=== PATIENT | female | born 1975 | race American Indian/Alaskan Native ===

== ENCOUNTER 2021-04-16 08:39 | Observation (INO) | payer OTHER ==
[2021-04-16] MEDS ORDERED: ASPIRIN 325 MG TAB PO ONE (09:05)
--- NOTE | 2021-04-16 09:56 | XRay Report ---
CHEST 2 VIEWS INDICATION / CLINICAL INFORMATION: chest pain. COMPARISON: None available. FINDINGS: SUPPORT DEVICES: None. HEART / MEDIASTINUM: No significant abnormality. LUNGS / PLEURA: No significant pulmonary abnormality. No significant pleural effusion. No pneumothora x. ADDITIONAL FINDINGS: No significant additional findings. IMPRESSION: 1. No acute abnormality of the chest. Signer Name: Yvon Melara MD Signed: 04/16/2021 9:52 AM Workstation Name: [id number]
[2021-04-16 10:30] LABS: Hematocrit 41.9 % (30.3-42.9); Hemoglobin 14.6 gm/dl (10.1-14.3); Mean Corpuscular HGB Conc 35 % (30-34); Mean Corpuscular Volume 91 fl (79-97); Platelet Count 269 K/mm3 (140-440); Red Blood Count 4.59 M/mm3 (3.65-5.03); Red Cell Distribution Width 16.3 % (13.2-15.2)
--- NOTE | 2021-04-16 10:39 | Emergency Department Report ---
ED Chest Pain HPI - General Chief Complaint: Chest Pain Stated Complaint: HEART DISCOMFORT Time Seen by Provider: 04/16/21 10:19 Source: patient Mode of arrival: Ambulatory Limitations: No Limitations - History of Present Illness Initial Comments: 45-year-old female with history of iron deficiency anemia and sickle cell trait, as well as some unknown heart condition which was apparently diagnosed at [place] last year, presents complaining of 3 days of intermittent left-sided chest pain. The patient states that for the last 3 days she has been experiencing intermittent episodes of left-sided chest pain just under her left breast and radiating to her left shoulder and left flank. She states that for the past 3 days the episodes have lasted a couple minutes at a time and come on at random. They resolve spontaneously after a few minutes. However, this morning around 6:30 AM, the patient reports that she had an episode of the left-sided chest p ain which lasted for 15 to 20 minutes, and then afterwards she was experiencing some very sharp pain for only few seconds at a time. However, this scared her and caused her to come in today. She states that the pain feels pressure-like. It is radiating to the left shoulder and flank. The pain is worsened by taking deep breaths. She denies any associated sweating, nausea/vomiting, shortness of breath, abdominal pain, cough, palpitations, headache, vision change, back pain, dysuria, hematuria, focal weakness, sensory changes, or any other complaints. She is vaccinated against the coronavirus. She denies any recent trauma. She has not tried taking anything for her symptoms. She has had a hysterectomy in the past. - Related Data Allergies Allergy/AdvReac Type Severity Reaction Status Date / Time acetaminophen Allergy Severe Swelling Verified 04/16/21 09:05 [From Tylenol-Codeine #3] codeine Allergy Severe Swelling Verified 04/16/21 09:05 [From Tylenol-Codeine #3] shellfish derived Allergy Severe Anaphylaxis Verified 04/16/21 09:05 Heart Score - HEART Score History: Highly suspicious EKG: Non-specific Age: < 45 Risk factors: 1-2 risk factors Troponin: < normal limit HEART Score: 4 - EKG Read Time Time EKG Completed: 08:54 EKG Read Time: 08:54 ED Review of Systems ROS: Stated complaint: HEART DISCOMFORT Other details as noted in HPI Constitutional: denies: chills, fever Eyes: denies: eye pain, vision change ENT: denies: throat pain, congestion Respiratory: denies: cough, shortness of breath Cardiovascular: chest pain, other (pleurisy). denies: palpitations, edema, syncope Gastrointestinal: denies: abdominal pain, nausea, vomiting Genitourinary: denies: dysuria, frequency Musculoskeletal: denies: back pain Skin: denies: rash Neurological: denies: headache, weakness, numbness ED Past Medical Hx - Past Medical History Previous Medical History?: Yes Hx Hypertension: Yes Additional medical history: sickle cell trait, unknown heart condition - Surgical History Past Surgical History?: Yes Additional Surgical History: hysterectomy - Social History Smoking Status: Unknown if ever smoked ED Physical Exam - General Limitations: No Limitations - Other Other exam information: GENERAL: Well developed and well nourished. No acute distress HEENT: Normocephalic. No obvious signs of trauma. Dry mucous membranes. EYES: Extraocular movements are intact. Pupils are equal round and reactive to light bilaterally NECK: Supple. Trachea is midline. LUNGS: Nonlabored breathing. Equal chest rise bilaterally. Clear to auscultation bilaterally. HEART/CARDIOVASCULAR: Regular rate and rhythm. No murmurs or rubs. VASCULAR: 2+ peripheral pulses. Cap refill < 2 seconds. No significant edema. ABDOMEN: Abdomen is soft and nondistended. There is no significant tenderness, guarding or rebound. SKIN: Skin is warm and dry NEURO: Patient is awake, alert, and oriented. flyer maker II-XII grossly intact. No focal deficits. Normal motor and sensory exam throughout. Normal speech. MUSCULOSKELETAL: No obvious deformities. There is mild tenderness over the left shoulder joint. However, there is no overlying skin changes, swelling, redness of any kind. She has full range of motion at the left shoulder including abduction/abduction and extension flexion. She has normal range of motion throughout. BACK/SPINE: Left CVA tenderness. ED Course Vital Signs 04/16/21 04/16/21 04/16/21 10:50 11:22 11:25 Temperature Pulse Rate 73 Respiratory 18 13 Rate Blood Pressure 139/96 Blood Pressure [Left] O2 Sat by Pulse 100 100 Oximetry 04/16/21 04/16/21 04/16/21 11:30 13:06 13:10 Temperature 98.7 F Pulse Rate 79 70 Respiratory 11 L 12 Rate Blood Pressure 147/117 147/117 Blood Pressure [Left] O2 Sat by Pulse 99 100 Oximetry 04/16/21 04/16/21 04/16/21 13:16 13:20 13:25 Temperature Pulse Rate 74 79 76 Respiratory 15 18 20 Rate Blood Pressure 147/117 147/117 134/96 Blood Pressure [Left] O2 Sat by Pulse 100 99 Oximetry 04/16/21 04/16/21 04/16/21 13:30 13:36 13:40 Temperature Pulse Rate 98 H 76 77 Respiratory 10 L 15 22 Rate Blood Pressure 134/96 134/96 134/96 Blood Pressure [Left] O2 Sat by Pulse 100 99 100 Oximetry 04/16/21 04/16/21 04/16/21 13:46 13:50 13:55 Temperature Pulse Rate 90 83 75 Respiratory 17 10 L 14 Rate Blood Pressure 142/88 142/88 116/72 Blood Pressure [Left] O2 Sat by Pulse 99 87 87 Oximetry 04/16/21 04/16/21 04/16/21 14:00 14:06 14:10 Temperature Pulse Rate 82 87 81 Respiratory 16 12 15 Rate Blood Pressure 116/72 116/72 116/72 Blood Pressure [Left] O2 Sat by Pulse 83 L 97 Oximetry 04/16/21 04/16/21 04/16/21 14:16 14:20 14:25 Temperature Pulse Rate 81 80 78 Respiratory 16 12 13 Rate Blood Pressure 116/72 116/72 118/90 Blood Pressure [Left] O2 Sat by Pulse 100 100 99 Oximetry 04/16/21 04/16/21 04/16/21 14:30 14:36 14:40 Temperature Pulse Rate 79 84 82 Respiratory 13 15 13 Rate Blood Pressure 118/90 118/90 118/90 Blood Pressure [Left] O2 Sat by Pulse 96 Oximetry 04/16/21 04/16/21 04/16/21 14:46 14:50 14:55 Temperature Pulse Rate 80 80 77 Respiratory 15 13 10 L Rate Blood Pressure 118/90 118/90 128/94 Blood Pressure [Left] O2 Sat by Pulse Oximetry 04/16/21 04/16/21 04/16/21 15:00 15:06 15:10 Temperature Pulse Rate 77 72 75 Respiratory 14 13 18 Rate Blood Pressure 128/94 128/94 128/94 Blood Pressure [Left] O2 Sat by Pulse 100 Oximetry 04/16/21 04/16/21 04/16/21 15:16 15:20 15:25 Temperature Pulse Rate 68 67 63 Respiratory 19 18 17 Rate Blood Pressure 128/94 128/94 134/78 Blood Pressure [Left] O2 Sat by Pulse 99 100 99 Oximetry 04/16/21 04/16/21 04/16/21 15:30 15:36 15:40 Temperature Pulse Rate 68 64 65 Respiratory 19 18 19 Rate Blood Pressure 134/78 134/78 134/78 Blood Pressure [Left] O2 Sat by Pulse 99 100 99 Oximetry 04/16/21 04/16/21 04/16/21 15:46 15:50 15:55 Temperature Pulse Rate 65 64 73 Respiratory 17 17 12 Rate Blood Pressure 134/78 134/78 124/80 Blood Pressure [Left] O2 Sat by Pulse 100 100 100 Oximetry 04/16/21 04/16/21 04/16/21 16:00 16:06 16:10 Temperature Pulse Rate 75 68 71 Respiratory 16 15 21 Rate Blood Pressure 124/80 124/80 124/80 Blood Pressure [Left] O2 Sat by Pulse Oximetry 04/16/21 04/16/21 04/16/21 16:16 16:20 16:25 Temperature Pulse Rate 66 66 68 Respiratory 15 18 16 Rate Blood Pressure 124/80 124/80 127/86 Blood Pressure [Left] O2 Sat by Pulse Oximetry 04/16/21 04/16/21 04/16/21 16:30 16:36 16:40 Temperature Pulse Rate 68 67 80 Respiratory 17 21 18 Rate Blood Pressure 127/86 127/86 127/86 Blood Pressure [Left] O2 Sat by Pulse 100 Oximetry 04/16/21 04/16/21 04/16/21 16:46 16:50 16:55 Temperature Pulse Rate 75 78 80 Respiratory 17 14 19 Rate Blood Pressure 127/86 127/86 125/84 Blood Pressure [Left] O2 Sat by Pulse 99 100 99 Oximetry 04/16/21 04/16/21 04/16/21 17:00 17:06 17:10 Temperature Pulse Rate 76 73 79 Respiratory 11 L 14 14 Rate Blood Pressure 127/86 127/86 127/86 Blood Pressure [Left] O2 Sat by Pulse 84 Oximetry 04/16/21 04/16/21 04/16/21 17:16 17:20 17:25 Temperature Pulse Rate 85 95 H 88 Respiratory 15 15 17 Rate Blood Pressure 127/86 127/86 136/94 Blood Pressure [Left] O2 Sat by Pulse Oximetry 04/16/21 04/16/21 04/16/21 17:30 17:36 17:40 Temperature Pulse Rate 82 85 88 Respiratory 22 11 L 14 Rate Blood Pressure 136/94 136/94 136/94 Blood Pressure [Left] O2 Sat by Pulse Oximetry 04/16/21 04/16/21 04/16/21 17:46 17:50 17:55 Temperature Pulse Rate 81 87 80 Respiratory 12 22 13 Rate Blood Pressure 136/94 136/94 128/85 Blood Pressure [Left] O2 Sat by Pulse Oximetry 04/16/21 04/16/21 04/16/21 18:00 18:06 18:10 Temperature Pulse Rate 87 82 82 Respiratory 18 18 14 Rate Blood Pressure 128/85 128/85 128/85 Blood Pressure [Left] O2 Sat by Pulse 98 100 98 Oximetry 04/16/21 04/16/21 04/16/21 18:16 18:20 18:25 Temperature Pulse Rate 85 79 88 Respiratory 11 L 23 22 Rate Blood Pressure 128/85 128/85 123/86 Blood Pressure [Left] O2 Sat by Pulse Oximetry 04/16/21 04/16/21 04/16/21 18:30 18:35 18:40 Temperature Pulse Rate 86 82 81 Respiratory 25 H 20 17 Rate Blood Pressure 123/86 123/86 123/86 Blood Pressure [Left] O2 Sat by Pulse 87 Oximetry 04/16/21 04/16/21 04/16/21 18:46 18:50 18:55 Temperature Pulse Rate 99 H 100 H 90 Respiratory 14 23 22 Rate Blood Pressure 123/86 123/86 130/86 Blood Pressure [Left] O2 Sat by Pulse 86 87 85 Oximetry 04/16/21 04/16/21 04/16/21 19:00 19:06 19:10 Temperature Pulse Rate 99 H 108 H 94 H Respiratory 15 18 26 H Rate Blood Pressure 123/86 123/86 123/86 Blood Pressure [Left] O2 Sat by Pulse 100 99 Oximetry 04/16/21 04/16/21 04/16/21 19:16 19:20 19:25 Temperature Pulse Rate 93 H 89 90 Respiratory 22 21 21 Rate Blood Pressure 123/86 123/86 139/88 Blood Pressure [Left] O2 Sat by Pulse 99 98 100 Oximetry 04/16/21 04/16/21 04/16/21 19:30 19:36 19:40 Temperature Pulse Rate 100 H 94 H 92 H Respiratory 21 21 20 Rate Blood Pressure 139/88 139/88 139/88 Blood Pressure [Left] O2 Sat by Pulse 97 97 97 Oximetry 04/16/21 04/16/21 04/16/21 19:46 19:50 19:55 Temperature Pulse Rate 94 H 94 H 95 H Respiratory 25 H 20 22 Rate Blood Pressure 139/88 139/88 116/77 Blood Pressure [Left] O2 Sat by Pulse 98 98 98 Oximetry 04/16/21 04/16/21 04/16/21 20:00 20:06 20:10 Temperature 98.4 F Pulse Rate 87 96 H 100 H Respiratory 18 25 H 23 Rate Blood Pressure 139/88 139/88 139/88 Blood Pressure 119/81 [Left] O2 Sat by Pulse 99 100 99 Oximetry 04/16/21 04/16/21 04/16/21 20:16 20:20 20:26 Temperature Pulse Rate 98 H 98 H 92 H Respiratory 25 H 15 10 L Rate Blood Pressure 139/88 139/88 99/57 Blood Pressure [Left] O2 Sat by Pulse 100 100 Oximetry SERGIO score - Sergio Score Age > 65: (0) No Aspirin use within the Past 7 Days: (0) No 3 or more CAD Risk Factors: (0) No 2 or more Angina events in past 24 hrs: (1) Yes Known CAD with more than 50% Stenosis: (0) No Elevated Cardiac Markers: (0) No ST Deviation Greater than 0.5mm: (0) No SERGIO Score: 1 ED Medical Decision Making - Lab Data Result diagrams: 04/16/21 09:53 04/16/21 09:53 Lab Results 04/16/21 04/16/21 04/16/21 Range/Units 09:53 09:53 10:26 WBC 5.4 (4.5-11.0) K/mm3 RBC 4.59 (3.65-5.03) M/mm3 Hgb 14.6 H (10.1-14.3) gm/dl Hct 41.9 (30.3-42.9) % MCV 91 (79-97) fl MCH 32 (28-32) pg MCHC 35 H (30-34) % RDW 16.3 H (13.2-15.2) % Plt Count 269 (140-440) K/mm3 Add Manual Diff Complete Total Counted 100 Seg Neuts % (Manual) 69.0 (40.0-70.0) % Lymphocytes % (Manual) 24.0 (13.4-35.0) % Monocytes % (Manual) 7.0 (0.0-7.3) % Nucleated RBC % Not Reportable Seg Neutrophils # Man 3.7 (1.8-7.7) K/mm3 Band Neutrophils # 0.0 K/mm3 Lymphocytes # (Manual) 1.3 (1.2-5.4) K/mm3 Abs React Lymphs (Man) 0.0 K/mm3 Monocytes # (Manual) 0.4 (0.0-0.8) K/mm3 Eosinophils # (Manual) 0.0 (0.0-0.4) K/mm3 Basophils # (Manual) 0.0 (0.0-0.1) K/mm3 Metamyelocytes # 0.0 K/mm3 Myelocytes # 0.0 K/mm3 Promyelocytes # 0.0 K/mm3 Blast Cells # 0.0 K/mm3 WBC Morphology Not Reportable Hypersegmented Neuts Not Reportable Hyposegmented Neuts Not Reportable Hypogranular Neuts Not Reportable Smudge Cells Not Reportable Toxic Granulation Not Reportable Toxic Vacuolation Not Reportable Dohle Bodies Not Reportable Pelger-Huet Anomaly Not Reportable Ger Rods Not Reportable Platelet Estimate Consistent w auto Clumped Platelets Not Reportable Plt Clumps, EDTA Not Reportable Large Platelets Not Reportable Giant Platelets Not Reportable Platelet Satelliting Not Reportable Plt Morphology Comment Not Reportable RBC Morphology Normal Dimorphic RBCs Not Reportable Polychromasia Not Reportable Hypochromasia Not Reportable Poikilocytosis Not Reportable Anisocytosis Not Reportable Microcytosis Not Reportable Macrocytosis Not Reportable Spherocytes Not Reportable Pappenheimer Bodies Not Reportable Sickle Cells Not Reportable Target Cells Not Reportable Tear Drop Cells Not Reportable Ovalocytes Not Reportable Helmet Cells Not Reportable Glass-Winterset Bodies Not Reportable [place] Rings Not Reportable Kittrell Cells Not Reportable Bite Cells Not Reportable Crenated Cell Not Reportable Elliptocytes Not Reportable Acanthocytes (Spur) Not Reportable Rouleaux Not Reportable Hemoglobin C Crystals Not Reportable Schistocytes Not Reportable Malaria parasites Not Reportable Dinesh Bodies Not Reportable Hem Pathologist Commnt No Sodium 140 (137-145) mmol/L Potassium 4.0 (3.6-5.0) mmol/L Chloride 104.2 (98-107) mmol/L Carbon Dioxide 29 (22-30) mmol/L Anion Gap 11 mmol/L BUN 7 (7-17) mg/dL Creatinine 0.6 (0.6-1.2) mg/dL Estimated GFR > 60 ml/min BUN/Creatinine Ratio 12 % Glucose 72 (65-100) mg/dL Calcium 9.3 (8.4-10.2) mg/dL Total Bilirubin 0.70 (0.1-1.2) mg/dL AST 18 (5-40) units/L ALT 9 (7-56) units/L Alkaline Phosphatase 42 (35-129) units/L Troponin T < 0.010 (0.00-0.029) ng/mL Total Protein 7.7 (6.3-8.2) g/dL Albumin 4.3 (3.9-5) g/dL Albumin/Globulin Ratio 1.3 % Lipase 28 (13-60) units/L - EKG Data -: EKG Interpreted by Az - EKG Data 04/16/21 10:58 Normal sinus rhythm. Normal axis. Normal intervals. No ectopy. Findings most consistent with early repolarization. There are no significant anatomically distributed ST elevations or T wave abnormalities. - Radiology Data Left shoulder 3 views INDICATION: Shoulder pain FINDINGS: Glenohumeral joint and AC joint appears normal. No acute fracture dislocation. IMPRESSION: No acute findings. Signer Name: Max Esteves MD Signed: 04/16/2021 10:24 AM Workstation Name: [id number] CHEST 2 VIEWS INDICATION / CLINICAL INFORMATION: chest pain. COMPARISON: None available. FINDINGS: SUPPORT DEVICES: None. HEART / MEDIASTINUM: No significant abnormality. LUNGS / PLEURA: No significant pulmonary abnormality. No significant pleural effusion. No pneumothorax. ADDITIONAL FINDINGS: No significant additional findings. IMPRESSION: 1. No acute abnormality of the chest. Signer Name: Yvon Melara MD Signed: 04/16/2021 8:52 AM Workstation Name: [id number] CT angio chest INDICATION / CLINICAL INFORMATION: rule out PE 100 ml omni 350 . TECHNIQUE: Axial CT images were obtained through the chest after injection of IV contrast. 3 plane MIP and/or 3D reconstructions were produced. All CT scans at this location are performed using CT dose reduction for ALARA by means of automated exposure control. COMPARISON: None available. FINDINGS: PULMONARY ARTERIES: No pulmonary emboli. HEART: No significant abnormality. MEDIASTINUM / STACIE: No significant abnormality. LUNGS: Lungs are clear No pleural effusion. No pneumothorax. ADDITIONAL FINDINGS: None. UPPER ABDOMEN: No acute findings. SKELETAL STRUCTURES: No significant osseous abnormality. IMPRESSION: 1. No CT evidence for pulmonary embolism. 2. No acute findings. Signer Name: Loki Conley MD Signed: 04/16/2021 11:16 AM Workstation Name: [id number] CT abdomen pelvis w con INDICATION: Left CVA tenderness 100 omni 350 . COMPARISON: None TECHNIQUE: Abdominal and pelvic CT exam performed. All CT scans at this location are performed using CT dose reduction for ALARA by means of automated exposure control. FINDINGS: CT ABDOMEN and PELVIS: Lung Bases: No significant abnormality. Liver: No significant abnormality. Biliary: No significant abnormality. Spleen: No significant abnormality. Pancreas: No significant abnormality. Adrenals: No significant abnormality. Kidneys: There are 2 punctate nonobstructing right middle lower pole stones. There is a complex cystic lesion within the left upper pole containing septations and thickened calcifications measuring up to approximately 3.3 cm. No definite enhancing mural nodularity. There are a few other bilateral simple appearing renal cysts. Lymphatics: No lymphadenopathy. Vasculature: No significant abnormality. Bowel: No significant abnormality. Normal appendix. Pelvis: No significant abnormality. Osseous Structures: No aggressive osseous lesion. Additional Findings: None IMPRESSION: 1. No acute findings. 2. There is a complex left upper pole cyst with multiple septa and thickened calcifications measuring 3.3cm which is thought to be Bosniak IIF. Recommend further characterization with multiphase CT or MRI on a nonemergent basis Signer Name: Loki Conley MD Signed: 04/16/2021 11:17 AM Workstation Name: [id number] - Medical Decision Making 45-year-old female who reports that she has a history of some heart condition which caused reduced blood flow to her heart last year which was diagnosed at [facility] presents complaining of 3 days of intermittent left-sided chest pain just under her left breast. The pain radiates to her left shoulder and around her left flank. It is also pleuritic. Her last episode of pain was at 6 AM this morning and lasted 15 to 20 minutes. However, she says she does have mild soreness of her chest now without discrete pain. On physical exam, she has dry mucous membranes. She has no abdominal tenderness, however there is left- sided CVA tenderness. In addition, her left shoulder joint is tender to the touch but she has full range of motion throughout. Given the numerous symptoms and wide differential which definitely includes ACS, we will perform broad work- up with a full set of labs including urinalysis, left shoulder x-ray, and CTA of the chest/abdomen/pelvis to assess for pulmonary embolism or other intra- thoracic/abdominal abnormality. CXR is wnl. We will give 1 L of IV fluids and aspirin for now. Labs have resulted and reveal no significant leukocytosis or anemia. There are no significant electrolyte abnormalities and kidney function is normal. Initial troponin is negative. CTA of the chest/abdomen/pelvis reveals no evidence of pulmonary embolism or intrathoracic/abdominal abnormality. There is an incidental finding of a renal cyst. All this was conveyed to the patient because she needs to follow this finding up. I gave her a printed copy of her CT report. The patient expressed understanding and agreement. The patient's heart score is 4. Given her history of some unknown cardiac abnormality and her heart score, she will be admitted to the on-call hospitalist for further work- up and management. The patient will be given nitroglycerin and aspirin. At 12:34 PM I spoke with Dr. Chiu, the on-call hospitalist regarding the case. He accepts the patient for admission and will assume care. On repeat assessment at 2 PM, the patient reports that she feels much better after the nitro glycerin and that it relieved her pain. Critical care attestation.: If time is entered above; I have spent that time in minutes in the direct care of this critically ill patient, excluding procedure time. ED Disposition Clinical Impression: Angina at rest, Dehydration Disposition: OP ADMIT IP TO THIS HOSP Is pt being admited?: Yes Condition: Stable
[2021-04-16] MEDS ORDERED: SODIUM CHLORIDE 0.9% 1000 ML 1,000 ML IV ONE (10:40)
[2021-04-16 10:55] LABS: Alanine Aminotransferase 9 units/L (7-56); Albumin 4.3 g/dL (3.9-5); Blood Urea Nitrogen 7 mg/dL (7-17); Calcium 9.3 mg/dL (8.4-10.2); Hemolysis Index 12
[2021-04-16 10:56] LABS: BUN/Creatinine Ratio 12
--- NOTE | 2021-04-16 11:29 | XRay Report ---
Left shoulder 3 views INDICATION: Shoulder pain FINDINGS: Glenohumeral joint and AC joint appears normal. No acute fracture dislocation. IMPRESSION: No acute findings. Signer Name: Max Esteves MD Signed: 04/16/2021 11:24 AM Workstation Name: [id number]
[2021-04-16] MEDS ORDERED: NITROGLYCERIN 0.4 MG TAB SUBL SL PRN (12:01)
--- NOTE | 2021-04-16 12:20 | Cat Scan Report ---
CT angio chest INDICATION / CLINICAL INFORMATION: rule out PE 100 ml omni 350 . TECHNIQUE: Axial CT images were obtained through the chest after injection of IV contrast. 3 plane MIP and/or 3D reconstructions were produced. All CT scans at this location are performed using CT dose reduction f or ALARA by means of automated exposure control. COMPARISON: None available. FINDINGS: PULMONARY ARTERIES: No pulmonary emboli. HEART: No significant abnormality. MEDIASTINUM / STACIE: No significant abnormality. LUNGS: Lungs are clear No pleural effusion. No pneumothorax. ADDITIONAL FINDINGS: None. UPPER ABDOMEN: No acute findings. SKELETAL STRUCTURES: No significant osseous abnormality. IMPRESSION: 1. No CT evidence for pulmonary embolism. 2. No acute findings. Signer Name: Loki Conley MD Signed: 04/16/2021 12:16 PM Workstation Name: [id number]
--- NOTE | 2021-04-16 12:21 | Cat Scan Report ---
CT abdomen pelvis w con INDICATION: Left CVA tenderness 100 omni 350 . COMPARISON: None TECHNIQUE: Abdominal and pelvic CT exam performed. All CT scans at this location are performed using CT dose reduction for ALARA by means of automated exposure control. FINDINGS: CT ABDOMEN and PELVIS: Lung Bases: No significant abnormality. Liver: No significant abnormality. Biliary: No significant abnormality. Spleen: No significant abnormality. Pancreas: No significant abnormality. Adrenals: No significant abnormality. Kidneys: There are 2 punctate nonobstructing right middle lower pole stones. There is a complex cysti c lesion within the left upper pole containing septations and thickened calcifications measuring up t o approximately 3.3 cm. No definite enhancing mural nodularity. There are a few other bilateral simpl e appearing renal cysts. Lymphatics: No lymphadenopathy. Vasculature: No significant abnormality. Bowel: No significant abnormality. Normal appendix. Pelvis: No significant abnormality. Osseous Structures: No aggressive osseous lesion. Additional Findings: None IMPRESSION: 1. No acute findings. 2. There is a complex left upper pole cyst with multiple septa and thickened calcifications measuring 3.3cm which is thought to be Bosniak IIF. Recommend further characterization with multiphase CT or M RI on a nonemergent basis Signer Name: Loki Conley MD Signed: 04/16/2021 12:17 PM Workstation Name: [id number]
[2021-04-16 12:36] LABS: Total Cells Counted 100
[2021-04-16 12:41] LABS: Platelet Estimate Consistent w Auto; RBC Morphology Normal
[2021-04-16 13:12] LABS: Bilirubin,Urine NEG (Negative); Blood,Urine NEG (Negative); Color,Urine Straw (Yellow); Protein,Urine <15 mg/dL mg/dL (Negative); Urobilinogen,Urine < 2.0 mg/dL (<2.0); WBC,Urine < 1.0 /HPF (0.0-6.0)
[2021-04-16] MEDS ORDERED: ONDANSETRON 4 MG/2 ML INJ IV PRN (23:01)
[2021-04-16] MEDS ORDERED: MORPHINE 2 MG/1 ML INJ IV PRN (23:01)
[2021-04-16] MEDS ORDERED: ACETAMINOPHEN 325 MG TAB PO PRN (23:01)
[2021-04-16] MEDS ORDERED: HYDROmorphone 1 MG/1 ML INJ IV PRN (23:01)
--- NOTE | 2021-04-16 23:08 | History and Physical Report ---
History of Present Illness Date of examination: 04/16/21 Date of admission: 04/16/21 12:35 Chief complaint: Chest pain for 3 days History of present illness: 47-year-old -[place] female with history of sickle cell trait comes in for left-sided chest pain of 3 days duration. Intermittent in nature. Chest pain is about 6 on a scale of 1-10. No exacerbating or relieving factors. No diaphoresis no shortness of breath no radiation of the chest pain. Patient has some unknown heart condition with of which is not clear. Patient also has sickle cell trait. No fever or chills. No exposure to coronavirus. Heart Score - HEART Score History: Highly suspicious EKG: Non-specific Age: < 45 Risk factors: 1-2 risk factors Troponin: < normal limit HEART Score: 4 - EKG Read Time Time EKG Completed: 08:54 EKG Read Time: 08:54 - Past Medical History Previous Medical History?: Yes --Hypertension: Yes Additional medical history: sickle cell trait, unknown heart condition - Surgical History Past Surgical History?: Yes Additional Surgical History: hysterectomy - Social History Smoking Status: Unknown if ever smoked Review of Systems ROS: Stated complaint: HEART DISCOMFORT Other details as noted in HPI Constitutional: denies: chills, fever Eyes: denies: eye pain, vision change ENT: denies: throat pain, congestion Respiratory: denies: cough, shortness of breath Cardiovascular: chest pain, other (pleurisy). denies: palpitations, edema, sy ncope Gastrointestinal: denies: abdominal pain, nausea, vomiting Genitourinary: denies: dysuria, frequency Musculoskeletal: denies: back pain Skin: denies: rash Neurological: denies: headache, weakness, numbness Medications and Allergies Allergies Allergy/AdvReac Type Severity Reaction Status Date / Time acetaminophen Allergy Severe Swelling Verified 04/16/21 09:05 [From Tylenol-Codeine #3] codeine Allergy Severe Swelling Verified 04/16/21 09:05 [From Tylenol-Codeine #3] shellfish derived Allergy Severe Anaphylaxis Verified 04/16/21 09:05 Active Meds: Active Medications Nitroglycerin (Nitroglycerin 0.4 Mg Tab Subl) 0.4 mg SL .Q5MIN PRN PRN Reason: Chest Pain Last Admin: 04/16/21 13:30 Dose: 0.4 mg Documented by: Exam - Constitutional Vitals: Temp Pulse Resp BP Pulse Ox 98.4 F 89 10 L 99/57 100 04/16/21 20:00 04/16/21 22:08 04/16/21 20:26 04/16/21 20:26 04/16/21 20:20 General appearance: Present: no acute distress, well-nourished - EENT Eyes: Present: PERRL ENT: hearing intact, clear oral mucosa - Neck Neck: Present: supple, normal ROM - Respiratory Respiratory effort: normal Respiratory: bilateral: CTA - Cardiovascular Heart rate: 78 Rhythm: regular Heart Sounds: Present: S1 & S2. Absent: rub, click - Extremities Extremities: pulses symmetrical, No edema Peripheral Pulses: within normal limits - Abdominal General gastrointestinal: Present: soft, non-tender, non-distended, normal bowel sounds Female genitourinary: Present: normal - Integumentary Integumentary: Present: clear, warm, dry - Musculoskeletal Musculoskeletal: gait normal, strength equal bilaterally - Psychiatric Psychiatric: appropriate mood/affect, intact judgment & insight - Neurologic Neurologic: CNII-XII intact, moves all extremities HEART Score - HEART Score EKG: Non-specific Age: < 45 Risk factors: 1-2 risk factors Troponin: Troponin T < 0.010 ng/mL (0.00-0.029) 04/16/21 14:46 Troponin: < normal limit Results - Labs CBC & Chem 7: 04/17/21 06:10 04/16/21 09:53 Labs: Laboratory Last Values WBC 5.4 K/mm3 (4.5-11.0) 04/16/21 09:53 RBC 4.59 M/mm3 (3.65-5.03) 04/16/21 09:53 Hgb 14.6 gm/dl (10.1-14.3) H 04/16/21 09:53 Hct 41.9 % (30.3-42.9) 04/16/21 09:53 MCV 91 fl (79-97) 04/16/21 09:53 MCH 32 pg (28-32) 04/16/21 09:53 MCHC 35 % (30-34) H 04/16/21 09:53 RDW 16.3 % (13.2-15.2) H 04/16/21 09:53 Plt Count 269 K/mm3 (140-440) 04/16/21 09:53 Add Manual Diff Complete 04/16/21 09:53 Total Counted 100 04/16/21 09:53 Seg Neuts % (Manual) 69.0 % (40.0-70.0) 04/16/21 09:53 Lymphocytes % (Manual) 24.0 % (13.4-35.0) 04/16/21 09:53 Monocytes % (Manual) 7.0 % (0.0-7.3) 04/16/21 09:53 Nucleated RBC % Not Reportable 04/16/21 09:53 Seg Neutrophils # Man 3.7 K/mm3 (1.8-7.7) 04/16/21 09:53 Band Neutrophils # 0.0 K/mm3 04/16/21 09:53 Lymphocytes # (Manual) 1.3 K/mm3 (1.2-5.4) 04/16/21 09:53 Abs React Lymphs (Man) 0.0 K/mm3 04/16/21 09:53 Monocytes # (Manual) 0.4 K/mm3 (0.0-0.8) 04/16/21 09:53 Eosinophils # (Manual) 0.0 K/mm3 (0.0-0.4) 04/16/21 09:53 Basophils # (Manual) 0.0 K/mm3 (0.0-0.1) 04/16/21 09:53 Metamyelocytes # 0.0 K/mm3 04/16/21 09:53 Myelocytes # 0.0 K/mm3 04/16/21 09:53 Promyelocytes # 0.0 K/mm3 04/16/21 09:53 Blast Cells # 0.0 K/mm3 04/16/21 09:53 WBC Morphology Not Reportable 04/16/21 09:53 Hypersegmented Neuts Not Reportable 04/16/21 09:53 Hyposegmented Neuts Not Reportable 04/16/21 09:53 Hypogranular Neuts Not Reportable 04/16/21 09:53 Smudge Cells Not Reportable 04/16/21 09:53 Toxic Granulation Not Reportable 04/16/21 09:53 Toxic Vacuolation Not Reportable 04/16/21 09:53 Dohle Bodies Not Reportable 04/16/21 09:53 Pelger-Huet Anomaly Not Reportable 04/16/21 09:53 Ger Rods Not Reportable 04/16/21 09:53 Platelet Estimate Consistent w auto 04/16/21 09:53 Clumped Platelets Not Reportable 04/16/21 09:53 Plt Clumps, EDTA Not Reportable 04/16/21 09:53 Large Platelets Not Reportable 04/16/21 09:53 Giant Platelets Not Reportable 04/16/21 09:53 Platelet Satelliting Not Reportable 04/16/21 09:53 Plt Morphology Comment Not Reportable 04/16/21 09:53 RBC Morphology Normal 04/16/21 09:53 Dimorphic RBCs Not Reportable 04/16/21 09:53 Polychromasia Not Reportable 04/16/21 09:53 Hypochromasia Not Reportable 04/16/21 09:53 Poikilocytosis Not Reportable 04/16/21 09:53 Anisocytosis Not Reportable 04/16/21 09:53 Microcytosis Not Reportable 04/16/21 09:53 Macrocytosis Not Reportable 04/16/21 09:53 Spherocytes Not Reportable 04/16/21 09:53 Pappenheimer Bodies Not Reportable 04/16/21 09:53 Sickle Cells Not Reportable 04/16/21 09:53 Target Cells Not Reportable 04/16/21 09:53 Tear Drop Cells Not Reportable 04/16/21 09:53 Ovalocytes Not Reportable 04/16/21 09:53 Helmet Cells Not Reportable 04/16/21 09:53 [place] Bodies Not Reportable 04/16/21 09:53 [place] Rings Not Reportable 04/16/21 09:53 [place] Cells Not Reportable 04/16/21 09:53 Bite Cells Not Reportable 04/16/21 09:53 Crenated Cell Not Reportable 04/16/21 09:53 Elliptocytes Not Reportable 04/16/21 09:53 Acanthocytes (Spur) Not Reportable 04/16/21 09:53 Rouleaux Not Reportable 04/16/21 09:53 Hemoglobin C Crystals Not Reportable 04/16/21 09:53 Schistocytes Not Reportable 04/16/21 09:53 Malaria parasites Not Reportable 04/16/21 09:53 Dinesh Bodies Not Reportable 04/16/21 09:53 Hem Pathologist Commnt No 04/16/21 09:53 Sodium 140 mmol/L (137-145) 04/16/21 09:53 Potassium 4.0 mmol/L (3.6-5.0) 04/16/21 09:53 Chloride 104.2 mmol/L (98-107) 04/16/21 09:53 Carbon Dioxide 29 mmol/L (22-30) 04/16/21 09:53 Anion Gap 11 mmol/L 04/16/21 09:53 BUN 7 mg/dL (7-17) 04/16/21 09:53 Creatinine 0.6 mg/dL (0.6-1.2) 04/16/21 09:53 Estimated GFR > 60 ml/min 04/16/21 09:53 BUN/Creatinine Ratio 12 % 04/16/21 09:53 Glucose 72 mg/dL (65-100) 04/16/21 09:53 Calcium 9.3 mg/dL (8.4-10.2) 04/16/21 09:53 Total Bilirubin 0.70 mg/dL (0.1-1.2) 04/16/21 09:53 AST 18 units/L (5-40) 04/16/21 09:53 ALT 9 units/L (7-56) 04/16/21 09:53 Alkaline Phosphatase 42 units/L (35-129) 04/16/21 09:53 Troponin T < 0.010 ng/mL (0.00-0.029) 04/16/21 14:46 Total Protein 7.7 g/dL (6.3-8.2) 04/16/21 09:53 Albumin 4.3 g/dL (3.9-5) 04/16/21 09:53 Albumin/Globulin Ratio 1.3 % 04/16/21 09:53 Lipase 28 units/L (13-60) 04/16/21 10:26 Urine Color Straw (Yellow) 04/16/21 12:45 Urine Turbidity Clear (Clear) 04/16/21 12:45 Urine pH 8.0 (5.0-7.0) H 04/16/21 12:45 Ur Specific [place] 1.048 (1.003-1.030) H 04/16/21 12:45 Urine Protein <15 mg/dl mg/dL (Negative) 04/16/21 12:45 Urine Glucose (UA) Neg mg/dL (Negative) 04/16/21 12:45 Urine Ketones Neg mg/dL (Negative) 04/16/21 12:45 Urine Blood Neg (Negative) 04/16/21 12:45 Urine Nitrite Neg (Negative) 04/16/21 12:45 Urine Bilirubin Neg (Negative) 04/16/21 12:45 Urine Urobilinogen < 2.0 mg/dL (<2.0) 04/16/21 12:45 Ur Leukocyte Esterase Neg (Negative) 04/16/21 12:45 Urine WBC (Auto) < 1.0 /HPF (0.0-6.0) 04/16/21 12:45 Urine RBC (Auto) 1.0 /HPF (0.0-6.0) 04/16/21 12:45 Short CBC 04/16/21 04/17/21 Range/Units 09:53 06:10 WBC 5.4 4.7 (4.5-11.0) K/mm3 Hgb 14.6 H 13.9 (10.1-14.3) gm/dl Hct 41.9 39.9 (30.3-42.9) % Plt Count 269 261 (140-440) K/mm3 BMP 04/16/21 04/17/21 09:53 06:10 Sodium 140 139 Potassium 4.0 3.8 Chloride 104.2 105.5 Carbon Dioxide 29 25 BUN 7 8 Creatinine 0.6 0.4 L Glucose 72 83 Calcium 9.3 8.9 Cardiac Enzymes 04/16/21 04/16/21 04/16/21 Range/Units 09:53 12:46 14:46 Troponin T < 0.010 < 0.010 < 0.010 (0.00-0.029) ng/mL 04/16/21 Range/Units 23:17 Troponin T < 0.010 (0.00-0.029) ng/mL Liver Function 04/16/21 04/17/21 Range/Units 09:53 06:10 Total Bilirubin 0.70 0.50 (0.1-1.2) mg/dL AST 18 14 (5-40) units/L ALT 9 8 (7-56) units/L Alkaline Phosphatase 42 38 (35-129) units/L Albumin 4.3 3.9 (3.9-5) g/dL Urine 04/16/21 Range/Units 12:45 Urine Color Straw (Yellow) Urine pH 8.0 H (5.0-7.0) Ur Specific [place] 1.048 H (1.003-1.030) Urine Protein <15 mg/dl (Negative) mg/dL Urine Glucose (UA) Neg (Negative) mg/dL Assessment and Plan Advance Directives: Yes (Full code) VTE prophylaxis?: Chemical Plan of care discussed with patient/family: Yes - Patient Problems (1) Acute coronary syndrome Current Visit: Yes Status: Acute Plan to address problem: Serial troponins and Lexiscan in the morning differential diagnosis of costochondritis and GERD (2) Sickle cell trait Current Visit: Yes Status: Chronic Plan to address problem: Hemoglobin and hematocrit are normal (3) Hypertension Current Visit: Yes Status: Chronic Qualifiers: Hypertension type: primary hypertension Qualified Code(s): I10 - Essential (primary) hypertension Plan to address problem: By history patient not on any antihypertensives we will trend the blood pressure and start antihypertensives if necessary (4) DVT prophylaxis Current Visit: Yes Status: Acute Plan to address problem: On heparin and GI prophylaxis
[2021-04-17] MEDS: FAMOTIDINE 20 MG TAB PO SCH ×2 (01:00→10:23)
[2021-04-17 06:34] LABS: Basophils % (Auto) 0.6 % (0.0-1.8); Eosinophils # (Auto) 0.1 K/mm3 (0.0-0.4); Eosinophils % (Auto) 2.4 % (0.0-4.3); Hematocrit 39.9 % (30.3-42.9); Hemoglobin 13.9 gm/dl (10.1-14.3); Lymphocytes # (Auto) 1.9 K/mm3 (1.2-5.4); Lymphocytes % (Auto) 40.7 % (13.4-35.0); Mean Corpuscular HGB Conc 35 % (30-34); Mean Corpuscular Volume 92 fl (79-97); Monocytes # (Auto) 0.3 K/mm3 (0.0-0.8); Monocytes % (Auto) 7.3 % (0.0-7.3); Platelet Count 261 K/mm3 (140-440); Red Blood Count 4.36 M/mm3 (3.65-5.03); Red Cell Distribution Width 16.3 % (13.2-15.2)
[2021-04-17 07:01] LABS: Alanine Aminotransferase 8 units/L (7-56); Albumin 3.9 g/dL (3.9-5); BUN/Creatinine Ratio 20; Blood Urea Nitrogen 8 mg/dL (7-17); Calcium 8.9 mg/dL (8.4-10.2); Hemolysis Index 7
[2021-04-17] MEDS ORDERED: REGADENOSON 0.4 MG/5 ML INJ IV ONE (07:21)
--- NOTE | 2021-04-17 10:10 | Electrocardiograph Report ---
[facility] Test Date: 2021-04-16 Test Time: 08:54:57 Pat Name: MANDO SHEEHAN Department: Room: A481 Gender: F [employer] Actor: LASHAWN : 1975 Requested By: JETHRO DONNELLY Order Number: [id number] Reading MD: Walter Dover Measurements Intervals [place] Rate: 75 P: 54 [place]: 173 QRS: 61 QRSD: 72 T: 60 QT: 386 QTc: 432 Interpretive Statements Sinus rhythm ST elevation suggests acute pericarditis No previous ECG available for comparison Electronically Signed On 04-17-2021 10:10:46 EDT by Walter Dover
--- NOTE | 2021-04-17 11:48 | Nuclear Medicine Report ---
APPROVED REPORT Exam: Nuclear Stress Test Indication: Chest pain BMI: 0 Stress Test Details Stress Test: Pharmacologic stress testing performed using 0.4 mg of regadenoson per 5 mL given IV over 10 seconds. HR Resting HR: 87 bpm Max HR Achieved: 136 bpm Max Heart Rate (APMHR): 177 bpm Target HR (85% APMHR): 150 bpm % of APMHR: 76 Recovery HR: 110 bpm HR response to stress: Normal HR response to stress BP Resting BP: 126/89 mmHg Max BP: 143/104 mmHg Recovery BP: 131/92 mmHg BP response to stress: Normal blood pressure response to stress. ECG Resting ECG: Sinus Rhythm,LVHby voltage criteria noted. Stress ECG: Sinus Tachycardia ST Change: None Arrhythmia: None Recovery ECG: Sinus Tachycardia Recovery ST Change: None Recovery Arrhythmia: None Clinical Reason for Termination: Completed protocol Stress Symptoms: Nausea, dizziness NM EXAM: Myocardial Perfusion REST/STRESS Imaging Protocol: Rest Tc-99m/Stress Tc-99m 1 day Resting Data Rest SPECT myocardial perfusion imaging was performed in supine position 45 minutes following the intravenous injection of 10 mCi of Tc-99m Myoview. Time of rest injection: 0700 Pharmacologic Stress Pharmacologic stress test was performed by injecting Regadenoson 0.4 mg IV push followed by the intravenous injection of 28 mCi of Tc-99m Myoview. Time of stress injection: 0930 Gated Stress SPECT was performed 30 minutes after stress injection. The images were gated to evaluate regional wall motion and calculate left ventricular ejection fraction. Study Quality Study: Excellent Lung Uptake: Normal Study Data Post stress, the left ventricular ejection was 61%.. TID = 1.02. Perfusion Wall Motion Normal wall motion with calculated EF of 61% post vasodilation with normal EDV and ESV. Nuclear Conclusion ECG Findings: negative for ischemia Clinical Findings: negative for ischemia Nuclear Findings: negative for ischemia Exercise Capacity: not assessed Left Ventricular Function: normal Risk Study: low Normal study. No scintigraphic evidence for myocardial ischemia or scar.
[2021-04-17 12:44] VITALS: BP 135/94
--- NOTE | 2021-04-17 17:47 | Discharge Summary ---
Providers - Providers Date of Admission: 04/16/21 12:35 Date of discharge: 04/17/21 Attending physician: JENNIFER ROMANO MD Primary care physician: THREAD SINGER Hospitalization Reason for admission: Chest pain Condition: Fair Hospital course: 45-year-old female with history of iron deficiency anemia and sickle cell trait, as well as some unknown heart condition which was apparently diagnosed at [facility] last year, presents complaining of 3 days of intermittent left-sided chest pain. The patient states that for the last 3 days she has been experiencing intermittent episodes of left-sided chest pain just under her left breast and radiating to her left shoulder and left flank. She states that for the past 3 days the episodes have lasted a couple minutes at a time and come on at random. They resolve spontaneously after a few minutes. However, this morning around 6:30 AM, the patient reports that she had an episode of the left-sided chest pain which lasted for 15 to 20 minutes, and then afterwards she was experiencing some very sharp pain for only few seconds at a time. However, this scared her and caused her to come in today. She states that the pain feels pressure-like. It is radiating to the left shoulder and flank. The pain is worsened by taking deep breaths. She denies any associated sweating, nausea/vomiting, shortness of breath, abdominal pain, cough, palpitations, headache, vision change, back pain, dysuria, hematuria, focal weakness, sensory changes, or any other complaints. She is vaccinated against the coronavirus. She denies any recent trauma. She has not tried taking anything for her symptoms. She has had a hysterectomy in the past. Hospital course Teresita Zamorano was admitted with complaint of chest pain. She has a history of the sickle cell trait however it was determined that she was not in anemic. The chest pain was worked up with Lexiscan. Lexiscan was negative per cardiology read. After questioning the patient more it was determined that her pain was reproducible to palpation. 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 She was discharged home with instructions to follow-up with her primary care physician in 3 to 5 days. Disposition: TO HOME OR SELFCARE Final Discharge Diagnosis (Prints w/discharge instructions): Costochondritis - Discharge Diagnoses (1) Costochondritis Status: Acute (2) Acute coronary syndrome Status: Acute (3) Dehydration Status: Acute (4) Hypertension Status: Chronic Qualifiers: Hypertension type: primary hypertension Qualified Code(s): I10 - Essential (primary) hypertension (5) Sickle cell trait Status: Chronic Core Measure Documentation - Palliative Care Palliative Care/ Comfort Measures: Not Applicable - Core Measures Any of the following diagnoses?: none Exam - Physical Exam Narrative exam: Physical Exam: GENERAL APPEARANCE: Well developed, well nourished, alert and cooperative, and appears to be in no acute distress. Pleasant healthy appearing female HEAD: normocephalic. EYES: PERRL, EOMI. Vision is grossly intact. EARS: No gross deformities NOSE: No nasal discharge. THROAT: Oral cavity and pharynx normal. No inflammation, swelling, exudate, or lesions. Teeth and gingiva in good general condition. NECK: Neck supple, non-tender without lymphadenopathy, masses or thyromegaly. CARDIAC: Normal S1 and S2. No S3, S4 or murmurs. Rhythm is regular. There is no peripheral edema, cyanosis or pallor. Extremities are warm and well perfused. Capillary refill is less than 2 seconds. No carotid bruits. LUNGS: Clear to auscultation and percussion without rales, rhonchi, wheezing or diminished breath sounds. ABDOMEN: Positive bowel sounds. Soft, nondistended, nontender. No guarding or rebound. No masses. MUSKULOSKELETAL: Adequately aligned spine. ROM intact spine and extremities. No joint erythema or tenderness. Normal muscular development. Normal gait. BACK: Examination of the spine reveals normal gait and posture EXTREMITIES: No significant deformity or joint abnormality. No edema. Peripheral pulses intact. No varicosities. NEUROLOGICAL: CN II-XII intact. Strength and sensation symmetric and intact throughout. Reflexes 2+ throughout. PSYCHIATRIC: The mental examination revealed the patient was oriented to person, place, and time. - Constitutional Vitals: Temp Pulse Resp BP Pulse Ox 98.2 F 82 18 127/85 97 04/17/21 12:14 04/17/21 14:00 04/17/21 12:14 04/17/21 12:14 04/17/21 12:14 Plan Activity: no restrictions Weight Bearing Status: Full Weight Bearing Diet: regular Plan of Treatment: Teresita Zamorano. You were admitted for left-sided chest pain at our facility. A nuclear stress test was completed to evaluate the cause of your chest pain. The stress test was negative per cardiology. We believe that the chest pain was likely precipitated from a musculoskeletal cause. 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 We recommend you follow-up with your primary care physician in 3 to 5 days. Follow up with: PRIMARY CARE, [Primary Care Provider] - 3-5 Days Forms: Work/School Release Form
== END 2021-04-17 16:56 | disposition home or self-care (01) ==
LOC: ED 08:39 → 4A 12:35
PROVIDERS: ADMIT Internal Medicine; ATTEND Internal Medicine
DX: I24.9 Acute ischemic heart disease, unspecified (principal); D57.3 Sickle-cell trait; I10 Essential (primary) hypertension; E86.0 Dehydration; R10.9 Unspecified abdominal pain; M94.0 Chondrocostal junction syndrome [Tietze]; Z90.710 Acquired absence of both cervix and uterus; Z98.890 Other specified postprocedural states
CPT/HCPCS: 36415; 71046; 71275; 73030; 74177; 78452; 80053; 81001; 83036; 83690; 84484; 85025; 93005; 93017; 96360; 99285; A9502; G0378; J2785; J7030; Q9967; 85007

== ENCOUNTER 2022-04-23 13:30 | Emergency (ER) | payer OTHER ==
[2022-04-23] MEDS ORDERED: methylPREDNISolone Sod Succinate 125 MG/2 ML INJ IV ONE (13:49)
[2022-04-23] MEDS ORDERED: diphenhydrAMINE 50 MG/ML VIAL IV ONE (13:49)
[2022-04-23] MEDS ORDERED: FAMOTIDINE 20 MG/2 ML INJ IV ONE (13:50)
--- NOTE | 2022-04-23 14:02 | Event Note ---
Date: 04/23/22 pt is allergic to [employer] and here for allergic reaction after getting in touch with [employer] [facility] swelling noted no distress solumedrol, pepcid and benadryl ordered
[2022-04-23] MEDS ORDERED: dexAMETHasone 4 MG/ML VIAL IV ONE (14:11)
--- NOTE | 2022-04-23 14:16 | Emergency Department Report ---
ED Allergic Reaction HPI - General Chief complaint: Allergic Reaction Stated complaint: ALLERGIC REACTION Time Seen by Provider: 04/23/22 14:03 Source: patient Mode of arrival: Ambulatory Limitations: No Limitations - History of Present Illness Initial Comments: This is a 46-year-old female with a prior history of ovarian cancer status post total abdominal hysterectomy in 2021, known allergies to Tylenol with codeine as well as seafood, presents for evaluation of lip swelling itching and facial swelling which she states is due to an allergic reaction. Patient reports that last night she ate at dinner made by her boyfriend which consisted of catfish, which she is known to be allergic to. She states however he was not home and she thought it was an of another flesh-colored fish that she can consume. She states when she awoke around 12 PM today, she felt as though her throat was tight and she felt itching of her skin as well as swelling of her face. Patient reports mild difficulty with swallowing. She took Benadryl 25 mg by mouth approximately 12 PM today without any aid. She states she used to carry an epinephrine pen but no longer has 1. She denies any active chest pain shortness of breath difficulty breathing or palpitations. She is not on blood pressure medication. Pain currently 0 out of 10. - Related Data Previous Rx's Medication Instructions Recorded Last Taken Type EPINEPHrine [Epipen] 0.3 mg IJ ONCE 1 Days #1 04/23/22 Unknown Rx Famotidine [Acid Controller] 20 mg PO DAILY 7 Days #7 04/23/22 Unknown Rx methylPREDNISolone [Medrol 4MG 4 mg PO DAILY 6 Days #21 04/23/22 Unknown Rx DOSEPAK (21 tabs)] Allergies Allergy/AdvReac Type Severity Reaction Status Date / Time acetaminophen Allergy Severe Swelling Verified 04/16/21 09:05 [From Tylenol-Codeine #3] codeine Allergy Severe Swelling Verified 04/16/21 09:05 [From Tylenol-Codeine #3] shellfish derived Allergy Severe Anaphylaxis Verified 04/16/21 09:05 ED Review of Systems ROS: Stated complaint: ALLERGIC REACTION Other details as noted in HPI Comment: All other systems reviewed and negative Constitutional: no symptoms reported Eyes: denies: eye pain ENT: denies: throat pain Respiratory: shortness of breath. denies: see HPI, cough, orthopnea Cardiovascular: denies: chest pain, dyspnea on exertion, orthopnea, edema, syncope, paroxysmal nocturnal dyspnea, other Gastrointestinal: denies: abdominal pain, nausea, vomiting, diarrhea, constipation, hematemesis, melena Genitourinary: denies: urgency, dysuria, frequency, hematuria, discharge Musculoskeletal: denies: back pain, joint swelling, arthralgia Skin: denies: rash, lesions, change in color, change in hair/nails, pruritus Neurological: denies: headache, weakness, paresthesias, confusion Psychiatric: denies: anxiety, depression, auditory hallucinations, visual hallucinations, homicidal thoughts, suicidal thoughts Hematological/Lymphatic: denies: easy bleeding, easy bruising, swollen glands ED Past Medical Hx - Past Medical History Hx Hypertension: Yes Additional medical history: sickle cell trait, unknown heart condition - Surgical History Additional Surgical History: hysterectomy - Social History Smoking Status: Unknown if ever smoked - Medications Home Medications: Home Medications Medication Instructions Recorded Confirmed Last Taken Type EPINEPHrine [Epipen] 0.3 mg IJ ONCE 1 Days #1 04/23/22 Unknown Rx Famotidine [Acid Controller] 20 mg PO DAILY 7 Days #7 04/23/22 Unknown Rx methylPREDNISolone [Medrol 4MG 4 mg PO DAILY 6 Days #21 04/23/22 Unknown Rx DOSEPAK (21 tabs)] ED Physical Exam - General Limitations: No Limitations (Patient noted to have mild edema to her lips) General appearance: alert, in no apparent distress, anxious, other (Middle-aged female, speaking in full sentences, no drooling no stridor no respiratory distress, mildly anxious appearing, tolerating her secretions without difficulty) - Head Head exam: Present: atraumatic, normocephalic, normal inspection, other (No edema to face or any abnormalities to face noted) - Eye Eye exam: Present: normal appearance, PERRL, EOMI, other Pupils: Present: normal accommodation - ENT ENT exam: Present: mucous membranes moist, normal external ear exam, other (Uvula midline without edema, tonsils symmetric and nonenlarged, no angioedema no macroglossia no Giorgi's angina, dentition unremarkable, no dental abscesses) - Neck Neck exam: Present: normal inspection, full ROM - Respiratory Respiratory exam: Present: normal lung sounds bilaterally, other (Chest wall is nontender to palpation) - Cardiovascular Cardiovascular Exam: Present: regular rate, normal rhythm, normal heart sounds. Absent: bradycardia, tachycardia, irregular rhythm, systolic murmur, diastolic murmur, rubs, gallop, clicks, JVD, S3, S4, other - GI/Abdominal GI/Abdominal exam: Present: soft, normal bowel sounds - Extremities Exam Extremities exam: Present: normal inspection, full ROM, tenderness, normal capillary refill. Absent: pedal edema, joint swelling, calf tenderness, other - Back Exam Back exam: Present: normal inspection, full ROM. Absent: tenderness, CVA tenderness (R), CVA tenderness (L), muscle spasm, paraspinal tenderness, vertebral tenderness - Neurological Exam Neurological exam: Present: alert, oriented X3, CN II-XII intact, normal gait, motor sensory deficit - Psychiatric Psychiatric exam: Present: normal affect, normal mood - Skin Skin exam: Present: warm, dry, intact, normal color, other. Absent: rash, cyanosis, diaphoretic, erythema, urticaria, vesicles, petechiae, pallor, abrasion ED Course Vital Signs 04/23/22 04/23/22 04/23/22 13:32 13:52 14:01 Temperature 97.7 F Pulse Rate 77 71 76 Respiratory 20 14 15 Rate Blood Pressure 168/105 Blood Pressure 138/96 [Left] O2 Sat by Pulse 100 99 99 Oximetry 04/23/22 04/23/22 04/23/22 14:15 14:31 14:45 Temperature Pulse Rate 72 65 63 Respiratory 12 15 15 Rate Blood Pressure 168/105 168/105 168/105 Blood Pressure [Left] O2 Sat by Pulse 99 100 100 Oximetry 04/23/22 04/23/22 04/23/22 15:01 15:15 15:31 Temperature Pulse Rate 59 L 66 60 Respiratory 15 16 17 Rate Blood Pressure 168/105 168/105 168/105 Blood Pressure [Left] O2 Sat by Pulse 100 100 99 Oximetry 04/23/22 04/23/22 04/23/22 15:45 16:01 16:15 Temperature Pulse Rate 64 66 66 Respiratory 15 16 16 Rate Blood Pressure 168/105 168/105 132/96 Blood Pressure [Left] O2 Sat by Pulse 100 99 98 Oximetry 04/23/22 04/23/22 04/23/22 16:31 16:45 17:01 Temperature Pulse Rate 64 69 71 Respiratory 18 18 19 Rate Blood Pressure 132/96 131/89 131/89 Blood Pressure [Left] O2 Sat by Pulse 100 99 99 Oximetry 04/23/22 04/23/22 04/23/22 17:15 17:31 17:45 Temperature Pulse Rate 72 69 73 Respiratory 24 18 18 Rate Blood Pressure 131/89 131/89 133/92 Blood Pressure [Left] O2 Sat by Pulse 99 97 97 Oximetry 04/23/22 04/23/22 18:01 18:15 Temperature Pulse Rate 69 92 H Respiratory 18 19 Rate Blood Pressure 133/92 133/92 Blood Pressure [Left] O2 Sat by Pulse 97 100 Oximetry - Reevaluation(s) Reevaluation #1: 04/23/22 14:52 Patient reassessed. She is comfortable and well-appearing. She denies any active throat tightness or difficulty breathing. Her vitals remained grossly unremarkable. We will continue to monitor. Reevaluation #2: 04/23/22 15:27 Pt reassessed. She is comfortable and well appearing. Her voice/phonation is clear. VSS. Reevaluation #3: 04/23/22 20:04 Patient reassessed. She is observed ambulating from the restroom. She denies any active difficulty breathing or shortness of breath. She denies feeling any itchiness. Her breathing is nonlabored. Her lungs are clear to auscultation bilaterally. Reevaluation of her oropharynx demonstrates no angioedema, no macroglossia, no Giorgi's angina. Critical care attestation.: If time is entered above; I have spent that time in minutes in the direct care of this critically ill patient, excluding procedure time. ED Disposition Clinical Impression: Allergic reaction to fish Disposition: 01 HOME / SELF CARE / HOMELESS Is pt being admited?: No Does the pt Need Aspirin: No Condition: Stable Instructions: Food Allergy Additional Instructions: Please continue to avoid as much as possible any known triggers that may cause an allergic reaction. This is very important. When you get home, you may take Benadryl 25 mg by mouth if needed. Starting on tomorrow, Tuesday, April 24, 2022, please take: 1. Medrol dose pack (6 days) 2. Famotidine 20mg by mouth daily (x 6 days) 3. Benadryl 25 mg by mouth as needed for itching and/or rash (x 6 days) If you develop severe or acute onset of difficulty breathing, shortness of breath, feelings as though your throat is closing, please use your prescribed epinephrine pen call 911 to be brought to the nearest emergency department soon as possible for emergent evaluation Prescriptions: Famotidine [Acid Controller] 20 mg PO DAILY 7 Days #7 EPINEPHrine [Epipen] 0.3 mg IJ ONCE 1 Days #1 methylPREDNISolone [Medrol 4MG DOSEPAK (21 tabs)] 4 mg PO DAILY 6 Days #21
[2022-04-23 20:03] VITALS: BP 145/85
== END 2022-04-23 21:00 | disposition home or self-care (01) ==
LOC: ED 13:30
DX: T78.49XA Other allergy, initial encounter (principal); Z88.6 Allergy status to analgesic agent; Z88.1 Allergy status to other antibiotic agents; Z91.013 Allergy to seafood; X58.XXXA Exposure to other specified factors, initial encounter
CPT/HCPCS: 96374; 96375; 99282; J1100; J1200; J2930; J3490